=== PATIENT | female | born 1960 | race Hispanic/Latino ===

== ENCOUNTER 2017-12-27 05:46 | Day surgery (SDC) | payer OTHER ==
[~2017-12-27] VITALS: Ht 157.5 cm; Wt 108.6 kg
[~2017-12-27 05:46] MED LIST: ACET-66 PO; CALC-1153 PO; FISH1CAP49 PO; HYDR12.530 PO; METO25TA3 PO; MULT-1258 PO; NAPR220C15 PO; THIA100T75 PO; VITA400C70 PO
[2017-12-27 05:57] VITALS: BP 102/76
[2017-12-27] MEDS ORDERED: SODIUM CHLORIDE 0.9% 1000ML 1,000 ML IV ONE (06:49)
[2017-12-27] MEDS ORDERED: GLYCOPYRROLATE 0.2 MG/ML 5 ML VIAL ONE (07:30)
[2017-12-27] MEDS ORDERED: FENTANYL CITRATE PF 50 MCG/1 ML 2ML VIAL ONE (07:30)
[2017-12-27] MEDS ORDERED: PROPOFOL 10 MG/ML 20ML VIAL IV ONE (07:30)
[2017-12-27] MEDS ORDERED: LIDOCAINE HCL 2% 20ML ONE (07:31)
[2017-12-27 07:57] VITALS: BP 97/53
== END 2017-12-27 08:31 | disposition home or self-care (01) ==
LOC: ENDO 05:46 → DAH 05:46 → ENDO 08:31
PROVIDERS: ATTEND Internal Medicine Gastroenterology
DX: Z09 Encounter for follow-up examination after completed treatment for conditions other than malignant neoplasm (principal); Z86.010 Personal history of colon polyps; K21.9 Gastro-esophageal reflux disease without esophagitis; I10 Essential (primary) hypertension; M19.90 Unspecified osteoarthritis, unspecified site; Z98.890 Other specified postprocedural states; Z79.899 Other long term (current) drug therapy; Z68.42 Body mass index [BMI] 45.0-49.9, adult; Z88.8 Allergy status to other drugs, medicaments and biological substances; K57.30 Diverticulosis of large intestine without perforation or abscess without bleeding
CPT/HCPCS: A4606; G0105; J2704; J3010; J3490 ×2; J7030

== ENCOUNTER 2020-12-05 21:29 | Inpatient (IN) | payer OTHER ==
[~2020-12-05] VITALS: Ht 154.9 cm; Wt 115.2 kg
[~2020-12-05 21:29] MED LIST changes: +VITA-164 PO; -VITA400C70 PO
[2020-12-05] MEDS ORDERED: ONDANSETRON 4MG INJ ONE (21:51)
[2020-12-05] MEDS ORDERED: 0.9%NACL 1000ML 1,000 ML IV ONE (21:51)
[2020-12-05] MEDS ORDERED: MORPHINE 4 MG SYG ONE (21:51)
[2020-12-05 22:01] LABS: BASOPHILS % (AUTO) 0.3 % (0.0-5.0); EOSINOPHILS % (AUTO) 0.2 % (0.0-8.0); LYMPHOCYTES % (AUTO) 12.2 % (21.0-51.0); MEAN CORPUSCULAR HEMOGLOBIN 28.1 pg (27.0-33.0); MEAN CORPUSCULAR HGB CONC 33.5 g/dL (32.0-36.0); MONOCYTES % (AUTO) 3.5 % (3.0-13.0); NEUTROPHILS % (AUTO) 83.3 % (40.0-77.0); PLATELET COUNT (AUTO) 283 K/uL (130-400); RED BLOOD CELL COUNT(AUTO) 5.12 MIL/uL (4.00-5.50); RED CELL DISTRIBUTION WIDTH 12.6 % (11.0-15.5); WHITE BLOOD COUNT (AUTO) 12.4 K/uL (4.8-10.8)
[2020-12-05 22:04] LABS: APPEARANCE,URINE Clear (CLEAR); BILIRUBIN,URINE Negative (NEGATIVE); COLOR,URINE Yellow (YELLOW); GLUCOSE, URINE (UA) Negative (NEGATIVE); KETONES,URINE 40 mg/dL (NEGATIVE); LEUKOCYTE ESTERASE ,URINE Negative (NEGATIVE); NITRATE,URINE Negative (NEGATIVE); OCCULT BLOOD,URINE Moderate (NEGATIVE); PROTEIN,URINE Trace mg/dL (NEGATIVE); UROBILINOGEN,URINE 0.2 mg/dL (0.2-1.0)
[2020-12-05 22:13] LABS: CREATININE 0.7 mg/dL (0.5-1.5); POTASSIUM 3.5 mmol/L (3.5-5.1)
[2020-12-05 22:17] LABS: BILIRUBIN,TOTAL 0.5 mg/dL (0.2-1.0); TOTAL PROTEIN, SERUM 8.8 g/dL (6.0-8.3)
[2020-12-05] MEDS ORDERED: FENTANYL CITRATE PF 50 MCG/1 ML 2ML VIAL ONE (22:21)
[2020-12-05 22:34] LABS: BACTERIA,URINE None Seen /HPF (None Seen); SQUAMOUS EPITHELIAL CELL,UR Few /HPF (0-2); WBC,URINE 0-1 /HPF (0-1)
[2020-12-05] MEDS ORDERED: LIDOCAINE HCL 2% VISCOUS 15 ML UDCUP ONE (22:44)
[2020-12-05] MEDS ORDERED: MAG/ALUM/SIMETH 30 ML UDCUP ONE (22:44)
[2020-12-05] MEDS ORDERED: KETOROLAC 15MG/ML VIAL (15MG/ML) ONE (22:45)
[2020-12-05] MEDS ORDERED: ZOSYN 3.375GM+NS 50ML 50 ML IV ONE (23:36)
[2020-12-06] MEDS ORDERED: ONDANSETRON 4MG INJ ONE (01:10)
[2020-12-06] MEDS ORDERED: MORPHINE 4 MG SYG ONE ×2 (01:10→05:09)
[2020-12-06] MEDS: LEVOFLOXACIN 500 MG/D5W 100 ML 100 ML IV SCH (03:45)
[2020-12-06] MEDS: LACTATED RINGERS 1000ML 1,000 ML IV SCH ×3 (03:45→20:08)
[2020-12-06] MEDS ORDERED: MORPHINE 4 MG SYG IV PRN (04:00)
[2020-12-06] MEDS ORDERED: ACETAMINOPHEN 325 MG TAB PO PRN (04:00)
[2020-12-06] MEDS ORDERED: ACETAMINOPHEN 650 MG SUPPOSITORY RC PRN (04:00)
[2020-12-06] MEDS ORDERED: ONDANSETRON 4MG INJ IVP PRN (04:00)
[2020-12-06] MEDS ORDERED: MORPHINE 2 MG SYG IM PRN (04:00)
[2020-12-06 05:35] LABS: CREATINE KINASE, TOTAL 125 U/L (21-232); MYOGLOBIN 65 ng/mL (10-92); TROPONIN I < 0.04 ng/mL (0.00-0.06)
[2020-12-06] MEDS: METRONIDAZOLE 500MG/100ML BAG 100 ML IVPB SCH ×3 (06:00→21:23)
[2020-12-06 09:10] VITALS: BP 125/70
[2020-12-06 10:22] LABS: CREATINE KINASE, TOTAL 237 U/L (21-232); MYOGLOBIN 359 ng/mL (10-92); TROPONIN I < 0.04 ng/mL (0.00-0.06)
[2020-12-06 11:01] VITALS: BP 126/83
[2020-12-06 11:57] VITALS: BP 127/79
[2020-12-06] MEDS ORDERED: HYDROMORPHONE 0.5 MG SYG (0.5MG/0.5ML) IVP PRN (13:15)
[2020-12-06] MEDS: HYDROMORPHONE 0.5 MG SYG (0.5MG/0.5ML) IVP PRN ×3 (15:09→20:07)
[2020-12-06 15:51] LABS: CREATINE KINASE, TOTAL 82 U/L (21-232); MYOGLOBIN 38 ng/mL (10-92); TROPONIN I < 0.04 ng/mL (0.00-0.06)
[2020-12-06] MEDS ORDERED: FLUT16H NS (18:31)
[2020-12-06] MEDS ORDERED: LEVO5TAB13 PO (18:32)
[2020-12-06 19:40] VITALS: BP 145/82
[2020-12-06 23:31] VITALS: BP 140/81
[2020-12-07] MEDS: HYDROMORPHONE 0.5 MG SYG (0.5MG/0.5ML) IVP PRN ×10 (00:37→22:09)
[2020-12-07] MEDS: LEVOFLOXACIN 500 MG/D5W 100 ML 100 ML IV SCH (03:12)
[2020-12-07] MEDS: LACTATED RINGERS 1000ML 1,000 ML IV SCH ×3 (03:13→20:40)
[2020-12-07 03:30] VITALS: BP 108/70
[2020-12-07] MEDS: METRONIDAZOLE 500MG/100ML BAG 100 ML IVPB SCH ×3 (05:01→21:19)
[2020-12-07 06:11] LABS: BASOPHILS % (AUTO) 0.3 % (0.0-5.0); EOSINOPHILS % (AUTO) 1.2 % (0.0-8.0); LYMPHOCYTES % (AUTO) 15.7 % (21.0-51.0); MEAN CORPUSCULAR HGB CONC 32.4 g/dL (32.0-36.0); MEAN CORPUSCULAR VOLUME 86.6 fL (79-99); MONOCYTES % (AUTO) 10.6 % (3.0-13.0); NEUTROPHILS % (AUTO) 71.9 % (40.0-77.0); PLATELET COUNT (AUTO) 245 K/uL (130-400); RED BLOOD CELL COUNT(AUTO) 4.39 MIL/uL (4.00-5.50); WHITE BLOOD COUNT (AUTO) 9.6 K/uL (4.8-10.8)
[2020-12-07 06:38] LABS: HEMOGLOBIN A1C 5.9 % (4.0-6.0)
[2020-12-07 06:40] LABS: ALBUMIN 2.9 g/dL (3.5-5.0); BILIRUBIN,TOTAL 0.9 mg/dL (0.2-1.0); CREATININE 0.7 mg/dL (0.5-1.5); MAGNESIUM 1.8 mg/dL (1.80-2.40); PHOSPHORUS 2.7 mg/dL (2.5-4.9); POTASSIUM 3.1 mmol/L (3.5-5.1); TOTAL PROTEIN, SERUM 7.1 g/dL (6.0-8.3)
[2020-12-07 07:20] VITALS: BP 111/52
[2020-12-07] MEDS ORDERED: POTASSIUM CHLORIDE 10% ELIXIR 20 MEQ/15 ML UDCUP PO PRN (07:30)
[2020-12-07] MEDS: LIDOCAINE HCL-MPF 1% 2ML VIAL IV PRN (09:09)
[2020-12-07] MEDS: POTASSIUM CHLORIDE 20MEQ/100ML 100 ML IV PRN (09:10)
[2020-12-07] MEDS: ENOXAPARIN SODIUM 40 MG/0.4 ML SYRINGE SQ SCH (09:10)
[2020-12-07 10:43] VITALS: BP 109/73
[2020-12-07] MEDS ORDERED: MAGNESIUM 2GM PREMIX 50ML 50 ML IV SCH (14:30)
[2020-12-07 15:46] VITALS: BP 120/61
[2020-12-07 20:50] VITALS: BP 104/54
[2020-12-07 23:30] VITALS: BP 123/67
[2020-12-08] VITALS (24 sets, daily range): BP systolic 99–148; BP diastolic 43–86
[2020-12-08] MEDS: HYDROMORPHONE 0.5 MG SYG (0.5MG/0.5ML) IVP PRN ×2 (00:01→01:05)
[2020-12-08] MEDS: HYDROMORPHONE 2 MG VIAL (2MG/ML) IVP PRN ×10 (01:52→23:06)
[2020-12-08] MEDS: LACTATED RINGERS 1000ML 1,000 ML IV SCH ×3 (03:03→19:56)
[2020-12-08] MEDS: LEVOFLOXACIN 500 MG/D5W 100 ML 100 ML IV SCH (03:38)
[2020-12-08] MEDS: METRONIDAZOLE 500MG/100ML BAG 100 ML IVPB SCH ×3 (05:17→21:13)
[2020-12-08 05:39] LABS: HEMATOCRIT 36.1 % (36-48); MEAN CORPUSCULAR HEMOGLOBIN 28.5 pg (27.0-33.0); MEAN CORPUSCULAR VOLUME 86.4 fL (79-99); RED BLOOD CELL COUNT(AUTO) 4.18 MIL/uL (4.00-5.50); RED CELL DISTRIBUTION WIDTH 12.6 % (11.0-15.5); WHITE BLOOD COUNT (AUTO) 7.6 K/uL (4.8-10.8)
[2020-12-08 06:06] LABS: CREATININE 0.8 mg/dL (0.5-1.5); POTASSIUM 3.3 mmol/L (3.5-5.1)
[2020-12-08] MEDS: LIDOCAINE HCL-MPF 1% 2ML VIAL IV PRN ×2 (06:37→18:16)
[2020-12-08] MEDS: POTASSIUM CHLORIDE 20MEQ/100ML 100 ML IV PRN ×2 (06:37→18:16)
[2020-12-08] MEDS: METOPROLOL SUCCINATE 50 MG TAB.SR.24H PO SCH (07:58)
[2020-12-08] MEDS ORDERED: 0.9%NACL 1000ML 1,000 ML IV ONE (08:00)
[2020-12-08] MEDS ORDERED: BUPIVACAINE/PF 0.5% 30ML VIAL ONE (08:43)
[2020-12-08] MEDS: HYDROCHLOROTHIAZIDE 25 MG TABLET PO SCH ×2 (09:00→21:13)
[2020-12-08] MEDS: ENOXAPARIN SODIUM 40 MG/0.4 ML SYRINGE SQ SCH (09:00)
[2020-12-08] MEDS: FLUTICASONE PROPIONATE 50MCG/SPRAY 16 GM BOTTLE NS SCH (09:00)
[2020-12-08] MEDS ORDERED: ONDANSETRON 4MG INJ ONE (09:40)
[2020-12-08] MEDS ORDERED: MIDAZOLAM HCL 1 MG/ML 2ML VIAL ONE (09:40)
[2020-12-08] MEDS ORDERED: LIDOCAINE PF 100MG/5ML (2%) SYRINGE 5ML ONE (09:45)
[2020-12-08] MEDS ORDERED: ROCURONIUM 10MG/1ML SYR 10 MG/ML ML ONE (09:45)
[2020-12-08] MEDS ORDERED: SUCCINYLCHOLINE 200MG/10ML SYR ONE (09:45)
[2020-12-08] MEDS ORDERED: PROPOFOL 10 MG/ML 20ML VIAL IV ONE (09:45)
[2020-12-08] MEDS ORDERED: FENTANYL CITRATE PF 50 MCG/1 ML 2ML VIAL ONE (09:59)
[2020-12-08] MEDS ORDERED: DEXAMETHASONE SOD PHOSPHATE 10MG/ML 1ML VIAL ONE (10:32)
[2020-12-08] MEDS ORDERED: EPHEDRINE SULFATE 50 MG/ML AMPULE ONE (10:44)
[2020-12-08] MEDS ORDERED: GLYCOPYRROLATE 1 MG/5 ML SYRINGE ONE (11:04)
[2020-12-08] MEDS ORDERED: NEOSTIGMINE 5MG/5ML SYR IV ONE (11:04)
[2020-12-08] MEDS ORDERED: MEPERIDINE-PF 25 MG/ML SYG ONE (11:26)
[2020-12-08] MEDS ORDERED: KETOROLAC 30MG VIAL (30MG/ML) ONE (11:36)
[2020-12-09] VITALS: BP 126/75
[2020-12-09] MEDS: HYDROMORPHONE 2 MG VIAL (2MG/ML) IVP PRN ×12 (00:17→23:09)
[2020-12-09] MEDS: LACTATED RINGERS 1000ML 1,000 ML IV SCH ×3 (03:22→19:41)
[2020-12-09] MEDS: LEVOFLOXACIN 500 MG/D5W 100 ML 100 ML IV SCH (03:22)
[2020-12-09 03:41] LABS: HEMATOCRIT 33.5 % (36-48); MEAN CORPUSCULAR HEMOGLOBIN 28.2 pg (27.0-33.0); MEAN CORPUSCULAR HGB CONC 33.1 g/dL (32.0-36.0); RED BLOOD CELL COUNT(AUTO) 3.94 MIL/uL (4.00-5.50); RED CELL DISTRIBUTION WIDTH 12.6 % (11.0-15.5); WHITE BLOOD COUNT (AUTO) 9.8 K/uL (4.8-10.8)
[2020-12-09 03:50] LABS: CREATININE 0.7 mg/dL (0.5-1.5); POTASSIUM 3.6 mmol/L (3.5-5.1)
[2020-12-09 04:00] VITALS: BP 117/68
[2020-12-09] MEDS: METRONIDAZOLE 500MG/100ML BAG 100 ML IVPB SCH ×3 (05:42→21:18)
[2020-12-09] MEDS: METOPROLOL SUCCINATE 50 MG TAB.SR.24H PO SCH (06:17)
[2020-12-09] MEDS: FLUTICASONE PROPIONATE 50MCG/SPRAY 16 GM BOTTLE NS SCH (08:08)
[2020-12-09] MEDS: ENOXAPARIN SODIUM 40 MG/0.4 ML SYRINGE SQ SCH (08:09)
[2020-12-09] MEDS: KCL 20 MEQ ERTAB PO PRN ×2 (08:10→11:54)
[2020-12-09 08:34] VITALS: BP 94/51
[2020-12-09 11:42] VITALS: BP 96/61
[2020-12-09 16:43] VITALS: BP 93/57
[2020-12-09 20:16] VITALS: BP 99/62
[2020-12-10 00:12] VITALS: BP 103/60
[2020-12-10] MEDS: HYDROMORPHONE 2 MG VIAL (2MG/ML) IVP PRN ×5 (00:35→05:39)
[2020-12-10] MEDS: LACTATED RINGERS 1000ML 1,000 ML IV SCH ×2 (02:51→10:10)
[2020-12-10 04:00] VITALS: BP 94/58
[2020-12-10] MEDS: LEVOFLOXACIN 500 MG/D5W 100 ML 100 ML IV SCH (04:42)
[2020-12-10] MEDS: METRONIDAZOLE 500MG/100ML BAG 100 ML IVPB SCH ×2 (05:39→12:42)
[2020-12-10 06:31] LABS: HEMATOCRIT 31.6 % (36-48); MEAN CORPUSCULAR HEMOGLOBIN 28.3 pg (27.0-33.0); MEAN CORPUSCULAR HGB CONC 32.6 g/dL (32.0-36.0); MEAN CORPUSCULAR VOLUME 86.8 fL (79-99); RED BLOOD CELL COUNT(AUTO) 3.64 MIL/uL (4.00-5.50)
[2020-12-10 06:49] LABS: ALBUMIN 2.6 g/dL (3.5-5.0); BILIRUBIN,TOTAL 0.4 mg/dL (0.2-1.0); CREATININE 0.8 mg/dL (0.5-1.5); POTASSIUM 3.4 mmol/L (3.5-5.1); TOTAL PROTEIN, SERUM 6.2 g/dL (6.0-8.3)
[2020-12-10 07:30] VITALS: BP 90/54
[2020-12-10] MEDS: METOPROLOL SUCCINATE 50 MG TAB.SR.24H PO SCH (10:10)
[2020-12-10] MEDS: HYDROCHLOROTHIAZIDE 25 MG TABLET PO SCH (10:10)
[2020-12-10] MEDS: ENOXAPARIN SODIUM 40 MG/0.4 ML SYRINGE SQ SCH (10:10)
[2020-12-10] MEDS: FLUTICASONE PROPIONATE 50MCG/SPRAY 16 GM BOTTLE NS SCH (10:11)
[2020-12-10 11:00] VITALS: BP 112/71
[2020-12-10 16:00] VITALS: BP 131/84
[2020-12-10] MEDS ORDERED: TRAMADOL /APAP 37.5MG/325MG TAB PO PRN (17:00)
[2020-12-10] MEDS ORDERED: METR500T PO (17:44)
[2020-12-10] MEDS ORDERED: LEVO500T90 PO (17:44)
[2021-10-01] MEDS ORDERED: ZINC220T4 PO (16:03)
[2021-10-01] MEDS ORDERED: VITAD50000 PO (16:03)
[2021-10-01] MEDS ORDERED: CYAN250010 PO (16:03)
== END 2020-12-10 19:00 | disposition home or self-care (01) | DRG 415 ==
LOC: EDH 21:29 → EDHIP 12-06 03:25 → 3BH 12-06 09:22
PROVIDERS: ADMIT Internal Medicine Pulmonary Disease; ATTEND Internal Medicine Pulmonary Disease
PROC: 0FT40ZZ Resection of Gallbladder, Open Approach (ICD-10-PCS; principal; 2020-12-08 09:43)
PROC: 0FN44ZZ Release Gallbladder, Percutaneous Endoscopic Approach (ICD-10-PCS; 2020-12-08 09:43)
DX: K80.00 Calculus of gallbladder with acute cholecystitis without obstruction (principal); Z68.42 Body mass index [BMI] 45.0-49.9, adult; I10 Essential (primary) hypertension; E66.01 Morbid (severe) obesity due to excess calories; K76.0 Fatty (change of) liver, not elsewhere classified; R05 Cough; K21.9 Gastro-esophageal reflux disease without esophagitis; Z20.822 Contact with and (suspected) exposure to COVID-19; Z79.899 Other long term (current) drug therapy; Z53.31 Laparoscopic surgical procedure converted to open procedure
CPT/HCPCS: 36415; 71045; 74176; 74181; 76705; 80048; 80053; 81001; 82550; 82728; 82948; 83036; 83605; 83615; 83690; 83735; 83874; 84100; 84145; 84484; 85025; 85027; 85378; 86850; 86900; 86901; 87426; 88304; 93005; 97039; 99291; G0378; J0330; J1100; J1170; J1650; J1885; J1956; J2001; J2175; J2250; J2270; J2405; J2543; J2704; J2710; J3010; J3480; J3490; J7030; J7120; U0003

== ENCOUNTER → 2021-06-25 | Outpatient (CLI) | payer OTHER ==
[~2021-06-25] MED LIST changes: -FISH1CAP49 PO; +FLUT16H NS; +LEVO500T89 PO; +LEVO5TAB13 PO; +METR500T PO; -NAPR220C15 PO; -THIA100T75 PO
== END | disposition home or self-care (01) ==
LOC: RAH 09:29
PROVIDERS: ATTEND Family Medicine
DX: R10.11 Right upper quadrant pain (principal); K76.0 Fatty (change of) liver, not elsewhere classified; Z90.49 Acquired absence of other specified parts of digestive tract
CPT/HCPCS: 76705

== ENCOUNTER → 2021-08-17 | Outpatient (CLI) | payer OTHER ==
[2021-08-17 15:45] LABS: CREATININE 0.9 mg/dL (0.5-1.5)
== END | disposition home or self-care (01) ==
LOC: LAB 14:42
PROVIDERS: ATTEND Internal Medicine Gastroenterology
DX: R10.11 Right upper quadrant pain (principal)
CPT/HCPCS: 36415; 82565; 84520

== ENCOUNTER → 2021-08-20 | Outpatient (CLI) | payer OTHER ==
[~2021-08-20] MED LIST changes: +IOHEXOL 350 MG/ML 100ML INFUS..BTL IV ONE
== END | disposition home or self-care (01) ==
LOC: RAH 08:10
PROVIDERS: ATTEND Internal Medicine Gastroenterology
DX: K45.8 Other specified abdominal hernia without obstruction or gangrene (principal); J98.11 Atelectasis; K76.0 Fatty (change of) liver, not elsewhere classified; Z90.49 Acquired absence of other specified parts of digestive tract; K57.30 Diverticulosis of large intestine without perforation or abscess without bleeding
CPT/HCPCS: 74177; Q9967

== ENCOUNTER 2021-10-05 08:27 | Observation (INO) | payer OTHER ==
[2021-09-28 12:00] VITALS: BP 140/78
[2021-09-28 12:18] LABS: BASOPHILS % (AUTO) 0.6 % (0.0-5.0); EOSINOPHILS % (AUTO) 2.1 % (0.0-8.0); HEMATOCRIT 42.8 % (36-48); LYMPHOCYTES % (AUTO) 26.6 % (21.0-51.0); MEAN CORPUSCULAR HEMOGLOBIN 29.4 pg (27.0-33.0); MEAN CORPUSCULAR HGB CONC 32.9 g/dL (32.0-36.0); MEAN CORPUSCULAR VOLUME 89.4 fL (79-99); MONOCYTES % (AUTO) 6.7 % (3.0-13.0); NEUTROPHILS % (AUTO) 63.5 % (40.0-77.0); PLATELET COUNT (AUTO) 243 K/uL (130-400); RED BLOOD CELL COUNT(AUTO) 4.79 MIL/uL (4.00-5.50); RED CELL DISTRIBUTION WIDTH 12.5 % (11.0-15.5); WHITE BLOOD COUNT (AUTO) 6.5 K/uL (4.8-10.8)
[2021-09-28 12:25] LABS: CREATININE 0.8 mg/dL (0.5-1.5); POTASSIUM 3.9 mmol/L (3.5-5.1)
[2021-09-28 12:29] LABS: INR 1.05 (0.85-1.15); PROTHROMBIN TIME 11.4 SEC (9.6-11.6)
[2021-09-28 12:30] LABS: PARTIAL THROMBOPLASTIN TIME 31.9 SEC (26.3-35.5)
[2021-10-05] VITALS (25 sets, daily range): BP systolic 115–135; BP diastolic 52–85
[~2021-10-05] VITALS: Ht 154.9 cm; Wt 114.0 kg
[~2021-10-05 08:27] MED LIST changes: -CALC-1153 PO; +CYAN250010 PO; -IOHEXOL 350 MG/ML 100ML INFUS..BTL IV ONE; -LEVO500T89 PO; -METR500T PO; +VITAD50000 PO; +ZINC220T4 PO
[2021-10-05] MEDS ORDERED: LACTATED RINGERS 1000ML 1,000 ML IV ONE (09:50)
[2021-10-05] MEDS: CLINDAMYCIN IVPB 900MG/50ML 50 ML IV SCH ×3 (10:00→19:55)
[2021-10-05] MEDS ORDERED: PROPOFOL 10 MG/ML 20ML VIAL IV ONE (10:51)
[2021-10-05] MEDS ORDERED: ROCURONIUM 10MG/1ML SYR 10 MG/ML ML ONE (10:51)
[2021-10-05] MEDS ORDERED: SUCCINYLCHOLINE 200MG/10ML SYR ONE (10:51)
[2021-10-05] MEDS ORDERED: LIDOCAINE PF 100MG/5ML (2%) SYRINGE 5ML ONE (10:51)
[2021-10-05] MEDS ORDERED: FENTANYL CITRATE PF 50 MCG/1 ML 2ML VIAL ONE (10:51)
[2021-10-05] MEDS ORDERED: GLYCOPYRROLATE 1 MG/5 ML SYRINGE ONE ×2 (11:13→12:23)
[2021-10-05] MEDS ORDERED: BUPIVACAINE/PF 0.5% 30ML VIAL ONE (11:19)
[2021-10-05] MEDS ORDERED: EPHEDRINE SULFATE 50 MG/ML AMPULE ONE (11:43)
[2021-10-05] MEDS ORDERED: NEOSTIGMINE 5MG/5ML SYR IV ONE (11:54)
[2021-10-05] MEDS ORDERED: KETOROLAC 30MG VIAL (30MG/ML) ONE (12:06)
[2021-10-05] MEDS ORDERED: ONDANSETRON 4MG INJ ONE (12:06)
[2021-10-05] MEDS ORDERED: MEPERIDINE-PF 25 MG/ML SYG ONE ×3 (12:07→13:02)
[2021-10-05] MEDS: MORPHINE 4 MG SYG IVP PRN (15:54)
[2021-10-05] MEDS: KETOROLAC 30MG VIAL (30MG/ML) IV SCH ×2 (16:00→21:49)
[2021-10-05] MEDS: PANTOPRAZOLE 40 MG/VIAL IVP SCH (16:02)
[2021-10-05] MEDS ORDERED: ACETAMINOPHEN 500 MG TABLET PO PRN (19:00)
[2021-10-05] MEDS: CETIRIZINE HCL 5 MG TABLET PO SCH (19:55)
[2021-10-06] MEDS: CLINDAMYCIN IVPB 900MG/50ML 50 ML IV SCH ×2 (03:45→12:27)
[2021-10-06] MEDS: KETOROLAC 30MG VIAL (30MG/ML) IV SCH ×4 (03:46→21:46)
[2021-10-06 03:59] VITALS: BP 107/59
[2021-10-06 05:27] LABS: BASOPHILS % (AUTO) 0.2 % (0.0-5.0); EOSINOPHILS % (AUTO) 0.2 % (0.0-8.0); HEMATOCRIT 37.8 % (36-48); LYMPHOCYTES % (AUTO) 12.9 % (21.0-51.0); MEAN CORPUSCULAR HEMOGLOBIN 28.7 pg (27.0-33.0); MEAN CORPUSCULAR HGB CONC 33.1 g/dL (32.0-36.0); MEAN CORPUSCULAR VOLUME 86.9 fL (79-99); MONOCYTES % (AUTO) 6.8 % (3.0-13.0); NEUTROPHILS % (AUTO) 79.6 % (40.0-77.0); PLATELET COUNT (AUTO) 231 K/uL (130-400); RED BLOOD CELL COUNT(AUTO) 4.35 MIL/uL (4.00-5.50); RED CELL DISTRIBUTION WIDTH 12.5 % (11.0-15.5); WHITE BLOOD COUNT (AUTO) 8.6 K/uL (4.8-10.8)
[2021-10-06 05:39] LABS: CREATININE 0.9 mg/dL (0.5-1.5); POTASSIUM 3.6 mmol/L (3.5-5.1)
[2021-10-06 07:53] VITALS: BP 113/69
[2021-10-06] MEDS: METOPROLOL SUCCINATE 50 MG TAB.SR.24H PO SCH (09:00)
[2021-10-06] MEDS: HYDROCHLOROTHIAZIDE 25 MG TABLET PO SCH (09:00)
[2021-10-06] MEDS: FLUTICASONE PROPIONATE 50MCG/SPRAY 16 GM BOTTLE NS SCH (09:00)
[2021-10-06] MEDS: PANTOPRAZOLE 40 MG/VIAL IVP SCH (10:29)
[2021-10-06] MEDS: MORPHINE 4 MG SYG IVP PRN ×2 (10:30→16:16)
[2021-10-06 12:00] VITALS: BP 122/75
[2021-10-06 16:00] VITALS: BP 106/63
[2021-10-06 19:53] VITALS: BP 114/61
[2021-10-06] MEDS: CETIRIZINE HCL 5 MG TABLET PO SCH (20:08)
[2021-10-06] MEDS: SIMETHICONE 80 MG TAB.CHEW PO SCH ×2 (20:08→20:53)
[2021-10-06 23:07] VITALS: BP 130/77
[2021-10-07] MEDS: KETOROLAC 30MG VIAL (30MG/ML) IV SCH ×2 (03:23→10:00)
[2021-10-07 03:44] VITALS: BP 105/67
[2021-10-07 08:00] VITALS: BP 109/65
[2021-10-07] MEDS: FLUTICASONE PROPIONATE 50MCG/SPRAY 16 GM BOTTLE NS SCH (09:00)
[2021-10-07] MEDS: METOPROLOL SUCCINATE 50 MG TAB.SR.24H PO SCH ×2 (09:00→09:32)
[2021-10-07] MEDS: PANTOPRAZOLE 40 MG/VIAL IVP SCH (09:30)
[2021-10-07] MEDS: HYDROCHLOROTHIAZIDE 25 MG TABLET PO SCH (09:32)
[2021-10-07] MEDS: SIMETHICONE 80 MG TAB.CHEW PO SCH ×2 (09:32→12:30)
[2021-10-07 12:00] VITALS: BP 129/64
[2021-10-07] MEDS ORDERED: TRAMADOL HCL 50 MG TABLET PO PRN (12:30)
== END 2021-10-07 17:31 | disposition home or self-care (01) ==
LOC: DAH 08:27 → 3BH 13:51 → INTOOBSV 13:51 → DAH 13:51
PROVIDERS: ADMIT Surgery; ATTEND Surgery
DX: K43.2 Incisional hernia without obstruction or gangrene (principal); Z20.822 Contact with and (suspected) exposure to COVID-19; L91.0 Hypertrophic scar; Z79.899 Other long term (current) drug therapy
CPT/HCPCS: 36415 ×3; 49560; 71045; 80048 ×2; 85025 ×2; 85610; 85730; 86850; 86900; 86901; 87635; 93005; 96365; 96366 ×2; 96375; 96376 ×2; A4215; A4221; A4222; A4223; A4452; A4600 ×2; A4663; A6260; C9113 ×3; C9803; G0378 ×51; G0379; J0330; J1885 ×5; J2001; J2175 ×3; J2270 ×3; J2405; J2704; J2710; J3010; J3490 ×8; J7120 ×2

== ENCOUNTER 2022-07-02 07:35 | Day surgery (SDC) | payer OTHER ==
[~2022-07-02 07:35] MED LIST changes: -ACET-66 PO; -CYAN250010 PO; +FLUT16H NASAL; -FLUT16H NS; +GLUC100019 PO; -HYDR12.530 PO; +HYDR12.54 PO; -METO25TA3 PO; +METO25TA6 PO; -VITAD50000 PO; +VITAMIN B PO
[2022-07-02 07:37] VITALS: BP 145/87
[2022-07-02] MEDS ORDERED: LIDOCAINE PF 100MG/5ML (2%) SYRINGE 5ML ONE (10:19)
[2022-07-02] MEDS ORDERED: VITAD50000 PO (10:19)
[2022-07-02] MEDS ORDERED: PROPOFOL 10 MG/ML 20ML VIAL IV ONE (10:19)
[2022-07-02 11:00] VITALS: BP 134/63
[2022-07-02 11:32] VITALS: BP 130/72
== END 2022-07-02 11:30 | disposition home or self-care (01) ==
LOC: DAH 07:35 → ENDO 07:35
PROVIDERS: ATTEND Surgery
DX: Z12.11 Encounter for screening for malignant neoplasm of colon (principal); K57.30 Diverticulosis of large intestine without perforation or abscess without bleeding; K43.2 Incisional hernia without obstruction or gangrene; I10 Essential (primary) hypertension; M19.90 Unspecified osteoarthritis, unspecified site; E66.01 Morbid (severe) obesity due to excess calories; Z96.653 Presence of artificial knee joint, bilateral; Z88.0 Allergy status to penicillin; Z88.1 Allergy status to other antibiotic agents; Z88.8 Allergy status to other drugs, medicaments and biological substances; Z90.49 Acquired absence of other specified parts of digestive tract
CPT/HCPCS: 87426; 45378; J2001; J2704; A4215; A4223; A4222; A4221; A4663; A4606

== ENCOUNTER 2022-08-27 07:48 | Day surgery (SDC) | payer OTHER ==
[2022-08-25 11:43] LABS: BASOPHILS % (AUTO) 0.7 % (0.0-5.0); EOSINOPHILS % (AUTO) 2.2 % (0.0-8.0); HEMATOCRIT 39.2 % (36-48); LYMPHOCYTES % (AUTO) 26.4 % (21.0-51.0); MEAN CORPUSCULAR HEMOGLOBIN 29.2 pg (27.0-33.0); MEAN CORPUSCULAR HGB CONC 33.2 g/dL (32.0-36.0); MEAN CORPUSCULAR VOLUME 88.1 fL (79-99); MONOCYTES % (AUTO) 8.4 % (3.0-13.0); PLATELET COUNT (AUTO) 236 K/uL (130-400); RED BLOOD CELL COUNT(AUTO) 4.45 MIL/uL (4.00-5.50); RED CELL DISTRIBUTION WIDTH 13.8 % (11.0-15.5); WHITE BLOOD COUNT (AUTO) 5.9 K/uL (4.8-10.8)
[2022-08-25 11:51] LABS: CREATININE 0.6 mg/dL (0.5-1.5)
[2022-08-26 10:42] VITALS: BP 158/85
[~2022-08-27] VITALS: Ht 154.9 cm; Wt 92.5 kg
[2022-08-27] VITALS (18 sets, daily range): BP systolic 104–131; BP diastolic 52–73
[~2022-08-27 07:48] MED LIST changes: +ACET-2123 PO; +ASCO100031 PO; +BUPIVACAINE/PF 0.5% 10ML VIAL ONE; +CALC-866 PO; +VITA1CAP85 PO; -VITAMIN B PO
[2022-08-27] MEDS ORDERED: CLINDAMYCIN IVPB 900MG/50ML 50 ML IV ONE (08:49)
[2022-08-27] MEDS ORDERED: LACTATED RINGERS 1000ML 1,000 ML IV ONE (08:50)
[2022-08-27] MEDS ORDERED: ONDANSETRON 4MG INJ ONE (10:53)
[2022-08-27] MEDS ORDERED: MIDAZOLAM HCL 1 MG/ML 2ML VIAL ONE (10:53)
[2022-08-27] MEDS ORDERED: PROPOFOL 10 MG/ML 20ML VIAL IV ONE (10:53)
[2022-08-27] MEDS ORDERED: FENTANYL CITRATE PF 50 MCG/1 ML 5ML AMP IV ONE (10:53)
[2022-08-27] MEDS ORDERED: ROCURONIUM 10MG/1ML SYR 10 MG/ML ML ONE (11:04)
[2022-08-27] MEDS ORDERED: GLYCOPYRROLATE 1 MG/5 ML SYRINGE ONE ×2 (11:23→13:44)
[2022-08-27] MEDS ORDERED: DEXAMETHASONE SOD PHOSPHATE 10MG/ML 1ML VIAL ONE ×2 (13:02→13:42)
[2022-08-27] MEDS ORDERED: FENTANYL CITRATE PF 50 MCG/1 ML 2ML VIAL ONE (13:37)
[2022-08-27] MEDS ORDERED: NEOSTIGMINE 5MG/5ML SYR IV ONE (13:44)
[2022-08-27] MEDS ORDERED: MEPERIDINE-PF 25 MG/ML SYG ONE (14:15)
== END 2022-08-27 16:30 | disposition home or self-care (01) ==
LOC: DAH 07:48
PROVIDERS: ATTEND Surgery
DX: K43.2 Incisional hernia without obstruction or gangrene (principal); E66.01 Morbid (severe) obesity due to excess calories; I10 Essential (primary) hypertension; Z90.49 Acquired absence of other specified parts of digestive tract; Z98.890 Other specified postprocedural states; Z79.899 Other long term (current) drug therapy; Z88.8 Allergy status to other drugs, medicaments and biological substances; Z88.0 Allergy status to penicillin; Z91.048 Other nonmedicinal substance allergy status; Z68.37 Body mass index [BMI] 37.0-37.9, adult; Z98.891 History of uterine scar from previous surgery
CPT/HCPCS: 80048; 85025; 87426; 36415; 49656; A6260; A4663; J7120 ×2; A4344; A4215 ×2; J3010 ×2; J3490 ×4; J1100 ×2; J2710; J2250; J2704; J2405; J2175; G0168; C1781; A4649; A4223; A4222; A4221; A4600

== ENCOUNTER → 2022-12-06 | Outpatient (CLI) | payer OTHER ==
[~2022-12-06] MED LIST changes: -BUPIVACAINE/PF 0.5% 10ML VIAL ONE; -VITA-164 PO; +VITA-348 PO
== END | disposition home or self-care (01) ==
LOC: RAH 09:02
PROVIDERS: ATTEND Surgery
DX: M47.815 Spondylosis without myelopathy or radiculopathy, thoracolumbar region (principal); R10.9 Unspecified abdominal pain
CPT/HCPCS: 74176

== ENCOUNTER → 2022-12-22 | Day surgery (SDC) | payer OTHER ==
[~2022-12-22] MED LIST changes: +LIDOCAINE HCL MPF 1% 5ML VIAL ONE; +LIDOCAINE HCL-MPF 1% 2ML VIAL ONE
[2022-12-22 08:44] LABS: PROTHROMBIN TIME 10.9 SEC (9.6-11.6)
[2022-12-22 08:46] LABS: PARTIAL THROMBOPLASTIN TIME 32.7 SEC (26.3-35.5)
== END | disposition home or self-care (01) ==
LOC: RAH 08:03
PROVIDERS: ATTEND Surgery
DX: R10.813 Right lower quadrant abdominal tenderness (principal)
CPT/HCPCS: 85610; 85730; 87071; 87205; 36415; 10030; J3490 ×2; C1729; 75989; 76942

== ENCOUNTER → 2023-08-19 | Outpatient (CLI) | payer OTHER ==
[~2023-08-19] MED LIST changes: +IBUP-1493 PO; -LIDOCAINE HCL MPF 1% 5ML VIAL ONE; -LIDOCAINE HCL-MPF 1% 2ML VIAL ONE
== END | disposition home or self-care (01) ==
LOC: RAH 10:37
PROVIDERS: ATTEND Psychiatry & Neurology Psychiatry
DX: R10.9 Unspecified abdominal pain (principal); L76.34 Postprocedural seroma of skin and subcutaneous tissue following other procedure
CPT/HCPCS: 76705

== ENCOUNTER 2023-09-11 18:15 | Emergency (ER) | payer OTHER ==
[~2023-09-11] VITALS: Ht 154.9 cm; Wt 95.3 kg
[~2023-09-11 18:15] MED LIST changes: -IBUP-1493 PO
[2023-09-11] MEDS ORDERED: ONDANSETRON 4MG INJ ONE (18:41)
[2023-09-11] MEDS ORDERED: 0.9%NACL 1000ML 1,000 ML IV SCH (19:00)
[2023-09-11 19:08] LABS: RAPID GROUP A STREP negative (NEGATIVE)
[2023-09-11 19:09] LABS: SARS-CoV-2, RNA, NAAT NEGATIVE SARS CoV-2 (NEGATIVE)
[2023-09-11 19:09] LABS: APPEARANCE,URINE CLOUDY (CLEAR); BILIRUBIN,URINE NEGATIVE (NEGATIVE); COLOR,URINE YELLOW (YELLOW); GLUCOSE, URINE (UA) NEGATIVE (NEGATIVE); KETONES,URINE NEGATIVE (NEGATIVE); LEUKOCYTE ESTERASE ,URINE 500 Leu/uL (NEGATIVE); NITRATE,URINE NEGATIVE (NEGATIVE); OCCULT BLOOD,URINE NEGATIVE (NEGATIVE); PROTEIN,URINE 10 mg/dL (NEGATIVE); UROBILINOGEN,URINE 0.2 mg/dL (0.2-1.0)
[2023-09-11 19:12] LABS: ADD UA MICROSCOPIC YES
[2023-09-11 19:13] LABS: BACTERIA,URINE MOD /HPF (None Seen); MUCUS,URINE FEW LPF (None Seen); SQUAMOUS EPITHELIAL CELL,UR MANY /HPF (0-2); WBC,URINE 51-100 /HPF (0-1)
[2023-09-11 19:13] LABS: HEMATOCRIT 42.2 % (36-48); MEAN CORPUSCULAR HEMOGLOBIN 30.3 pg (27.0-33.0); MEAN CORPUSCULAR HGB CONC 33.6 g/dL (32.0-36.0); MEAN CORPUSCULAR VOLUME 90.2 fL (79-99); PLATELET COUNT (AUTO) 282 K/uL (130-400); RED BLOOD CELL COUNT(AUTO) 4.68 MIL/uL (4.00-5.50); WHITE BLOOD COUNT (AUTO) 14.4 K/uL (4.8-10.8)
[2023-09-11 19:14] LABS: BASOPHILS # (AUTO) 0.04 K/uL (0.00-0.20); BASOPHILS % (AUTO) 0.3 % (0.0-5.0); CREATININE 0.8 mg/dL (0.5-1.5); EOSINOPHILS # (AUTO) 0.07 K/uL (0.00-0.70); EOSINOPHILS % (AUTO) 0.5 % (0.0-8.0); IMMATURE GRANULOCYTE ABSOLUTE 0.05 K/uL (0-1); LYMPHOCYTES # (AUTO) 0.8 K/uL (1.0-4.8); LYMPHOCYTES % (AUTO) 5.8 % (21.0-51.0); MONOCYTES # (AUTO) 0.7 K/uL (0.1-1.0); MONOCYTES % (AUTO) 4.9 % (3.0-13.0); NEUTROPHILS # (AUTO) 12.7 K/uL (1.8-7.7); NEUTROPHILS % (AUTO) 88.2 % (40.0-77.0); POTASSIUM 3.7 mmol/L (3.5-5.1)
[2023-09-11 19:14] LABS: INFLUENZA TYPE A Negative For Type A (NEGATIVE); INFLUENZA TYPE B Negative For Type B (NEGATIVE)
[2023-09-11 19:23] LABS: ALBUMIN 3.7 g/dL (3.5-5.0); BILIRUBIN,TOTAL 0.3 mg/dL (0.2-1.0)
[2023-09-11] MEDS ORDERED: IOHEXOL-350 75 ML VIAL IV ONE (20:07)
[2023-09-11] MEDS ORDERED: IBUP-1493 PO (21:23)
[2023-09-11 21:32] VITALS: BP 136/78; PULSE 88; RESP 18; O2SAT 99
== END 2023-09-11 21:37 | disposition home or self-care (01) ==
LOC: EDH 18:15
DX: K43.9 Ventral hernia without obstruction or gangrene (principal); M19.90 Unspecified osteoarthritis, unspecified site; I10 Essential (primary) hypertension; Z79.899 Other long term (current) drug therapy; Z88.0 Allergy status to penicillin; Z88.1 Allergy status to other antibiotic agents; Z88.2 Allergy status to sulfonamides; Z90.49 Acquired absence of other specified parts of digestive tract; Z20.822 Contact with and (suspected) exposure to COVID-19
CPT/HCPCS: 99285; 74177; 96374; 71045; 87635; 96361; 84484; 80053; 83690; 85025; 87088; 87880; 87804 ×2; 81001; 36415; 93005; C9803; J2405; Q9967

== ENCOUNTER 2023-12-25 09:34 | Emergency (ER) | payer OTHER ==
[~2023-12-25] VITALS: Ht 154.9 cm; Wt 98.9 kg
[~2023-12-25 09:34] MED LIST changes: +DOCU-116 PO; +FIBER WELL PO; +GABA-529 PO; +METH-662 PO; +METO-408 PO; -METO25TA6 PO; +RED1TAB. PO; +TRAM50TA4 PO; +TURM1TAB2 PO
[2023-12-25 11:25] LABS: BASOPHILS # (AUTO) 0.05 K/uL (0.00-0.20); BASOPHILS % (AUTO) 0.6 % (0.0-5.0); EOSINOPHILS # (AUTO) 0.41 K/uL (0.00-0.70); EOSINOPHILS % (AUTO) 5.3 % (0.0-8.0); IMMATURE GRANULOCYTE ABSOLUTE 0.03 K/uL (0-1); LYMPHOCYTES # (AUTO) 1.4 K/uL (1.0-4.8); LYMPHOCYTES % (AUTO) 17.5 % (21.0-51.0); MEAN CORPUSCULAR HGB CONC 33.2 g/dL (32.0-36.0); MEAN CORPUSCULAR VOLUME 87.3 fL (79-99); MONOCYTES # (AUTO) 0.6 K/uL (0.1-1.0); MONOCYTES % (AUTO) 7.1 % (3.0-13.0); NEUTROPHILS # (AUTO) 5.3 K/uL (1.8-7.7); NEUTROPHILS % (AUTO) 69.1 % (40.0-77.0); PLATELET COUNT (AUTO) 434 K/uL (130-400); RED BLOOD CELL COUNT(AUTO) 4.24 MIL/uL (4.00-5.50); RED CELL DISTRIBUTION WIDTH 12.3 % (11.0-15.5); WHITE BLOOD COUNT (AUTO) 7.7 K/uL (4.8-10.8)
[2023-12-25 11:25] LABS: APPEARANCE,URINE CLOUDY (CLEAR); BILIRUBIN,URINE NEGATIVE (NEGATIVE); COLOR,URINE YELLOW (YELLOW); GLUCOSE, URINE (UA) NEGATIVE (NEGATIVE); KETONES,URINE NEGATIVE (NEGATIVE); LEUKOCYTE ESTERASE ,URINE 75 Leu/uL (NEGATIVE); NITRATE,URINE NEGATIVE (NEGATIVE); OCCULT BLOOD,URINE NEGATIVE (NEGATIVE); PH,URINE 5.5 (5.0-8.0); PROTEIN,URINE 10 mg/dL (NEGATIVE); UROBILINOGEN,URINE 0.2 mg/dL (0.2-1.0)
[2023-12-25 11:39] LABS: CREATININE 0.8 mg/dL (0.5-1.5); POTASSIUM 3.6 mmol/L (3.5-5.1)
[2023-12-25 11:44] LABS: BILIRUBIN,TOTAL 0.3 mg/dL (0.2-1.0); TOTAL PROTEIN, SERUM 8.2 g/dL (6.0-8.3)
[2023-12-25 11:53] VITALS: BP 112/58; PULSE 76; RESP 18; O2SAT 98
[2023-12-25 11:56] LABS: ADD UA MICROSCOPIC YES
[2023-12-25 12:05] LABS: BACTERIA,URINE RARE /HPF (None Seen); CALCIUM OXALATE CRYSTALS,UR FEW /LPF (None Seen); MUCUS,URINE MOD LPF (None Seen); SQUAMOUS EPITHELIAL CELL,UR MOD /HPF (0-2); TRANSITIONAL EPI CELLS,URINE RARE /HPF (None Seen); UNCLASSIFIED CRYSTAL 2 /HPF (None Seen)
[2023-12-25] MEDS ORDERED: IOHEXOL-350 75 ML VIAL IV ONE (12:17)
[2023-12-25] MEDS: MORPHINE 2 MG SYG IVP ONE (13:23)
[2023-12-25] MEDS: ONDANSETRON 4MG INJ IVP ONE (13:23)
[2023-12-25] MEDS ORDERED: NITR100C PO (13:39)
[2024-01-15] MEDS ORDERED: ACET-2123 PO (21:04)
== END 2023-12-25 13:59 | disposition home or self-care (01) ==
LOC: EDH 09:34
DX: R10.10 Upper abdominal pain, unspecified (principal); N39.0 Urinary tract infection, site not specified; I10 Essential (primary) hypertension; M19.90 Unspecified osteoarthritis, unspecified site; Z79.899 Other long term (current) drug therapy; Z98.890 Other specified postprocedural states; Z88.0 Allergy status to penicillin; Z88.1 Allergy status to other antibiotic agents; Z88.2 Allergy status to sulfonamides; Z88.8 Allergy status to other drugs, medicaments and biological substances
CPT/HCPCS: 99285; 74177; 96374; 96375; 80053; 85025; 87040 ×2; 87070; 87076; 87077 ×2; 87088; 87186 ×2; 87205; 83605; 81001; 36415; J2270; J2405; Q9967